=== PATIENT | male | born 2005 | race Caucasian/White ===

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

== ENCOUNTER → 2024-05-15 | Outpatient (REF) | payer BC ==
[~2024-05-15] MED LIST: ARIP1TAB4; CIPR-249 PO; ESCITALOPRAM; ESTR2TAB3; SPIR100T3
[2024-05-15 18:53] LABS: BASO % 0.5 % (0.0-1.0); EOS # 0.1 10^3/uL (0.0-0.5); EOS % 2.2 % (0.0-3.0); HEMATOCRIT 39.7 % (42.0-52.0); HEMOGLOBIN 13.1 g/dl (13.5-17.5); LYMPH # 1.3 10^3/uL (1.5-5.0); LYMPH % 19.6 % (24.0-44.0); MEAN CORPUSCULAR HEMOGLOBIN 30.8 pg (27.0-33.0); MEAN CORPUSCULAR VOLUME 93.4 fl (80.0-96.0); MONO # 0.6 10^3/uL (0.0-0.8); MONO % 8.7 % (2.0-8.0); NEUTROPHILS # 4.5 10^3/uL (1.5-8.5); NEUTROPHILS % 68.7 % (36.0-66.0); PLATELET COUNT, AUTOMATED 257 10^3/uL (150-450); RED BLOOD COUNT 4.25 10^6/uL (4.30-6.10); WHITE BLOOD COUNT 6.5 10^3/uL (4.0-10.0)
[2024-05-15 19:12] LABS: IRON (FE) 40 UG/DL (65-175)
[2024-05-15 19:13] LABS: ALBUMIN 3.9 G/DL (3.2-5.2); ALKALINE PHOSPHATASE 76 U/L (40-129); ALT/SGPT 22 U/L (7.0-40); AST/SGOT 12 U/L (<34); BILIRUBIN,TOTAL 0.7 MG/DL (0.3-1.2); BLOOD UREA NITROGEN 12 MG/DL (9-23); CALCIUM LEVEL 9.6 MG/DL (8.5-10.1); CARBON DIOXIDE LEVEL 28 MMOL/L (20-31); CHLORIDE LEVEL 108 MMOL/L (98-107); CREATININE FOR GFR 0.84 MG/DL (0.70-1.30); GLUCOSE, FASTING 92 MG/DL (60-100); PERCENT SATURATION 13.4 % (19.7-50.0); POTASSIUM SERUM 3.9 MMOL/L (3.5-5.1); SODIUM LEVEL 142 MMOL/L (136-145); TOTAL IRON BINDING CAPACITY 299 UG/DL (250-425); TOTAL PROTEIN 6.7 G/DL (5.7-8.2)
== END ==
LOC: M SFHCLERA 14:00
DX: Z83.2 Family history of diseases of the blood and blood-forming organs and certain disorders involving the immune mechanism (principal); F50.89 Other specified eating disorder; G47.33 Obstructive sleep apnea (adult) (pediatric); F41.8 Other specified anxiety disorders; R16.1 Splenomegaly, not elsewhere classified

== ENCOUNTER 2024-06-19 13:29 | Emergency (ER) | payer BC ==
[~2024-06-19] VITALS: Ht 182.9 cm; Wt 175.3 kg
[2024-06-19 14:25] LABS: BASO % 0.5 % (0.0-1.0); EOS % 0.5 % (0.0-3.0); HEMATOCRIT 35.6 % (42.0-52.0); HEMOGLOBIN 12.5 g/dl (13.5-17.5); LYMPH # 1.4 10^3/uL (1.5-5.0); LYMPH % 20.9 % (24.0-44.0); MEAN CORPUSCULAR HEMOGLOBIN 32.1 pg (27.0-33.0); MEAN CORPUSCULAR HGB CONC 35.1 g/dl (32.0-36.5); MEAN CORPUSCULAR VOLUME 91.3 fl (80.0-96.0); MONO # 0.5 10^3/uL (0.0-0.8); MONO % 7.9 % (2.0-8.0); NEUTROPHILS # 4.6 10^3/uL (1.5-8.5); NEUTROPHILS % 69.9 % (36.0-66.0); PLATELET COUNT, AUTOMATED 224 10^3/uL (150-450); WHITE BLOOD COUNT 6.6 10^3/uL (4.0-10.0)
[2024-06-19 14:52] LABS: BLOOD UREA NITROGEN 12 MG/DL (9-23); CALCIUM LEVEL 9.1 MG/DL (8.5-10.1); CARBON DIOXIDE LEVEL 28 MMOL/L (20-31); CHLORIDE LEVEL 105 MMOL/L (98-107); CREATININE FOR GFR 0.92 MG/DL (0.70-1.30); GLUCOSE, FASTING 86 MG/DL (60-100); POTASSIUM SERUM 3.6 MMOL/L (3.5-5.1); SODIUM LEVEL 141 MMOL/L (136-145)
[2024-06-19 16:18] LABS: KETONE, URINE AUTO RFX TRACE mg/dL (NEGATIVE); LEUKOCYTE ESTERASE UR AUTO RFX NEGATIVE (NEGATIVE); NITRITE, URINE AUTO RFX NEGATIVE (NEGATIVE); RBC, URINE AUTO RFX 0 /HPF (0-3); SQUAM EPITHELIAL CELL UR AURFX 0 /HPF (0-6); WBC, URINE AUTO RFX 0 /HPF (0-3)
[2024-06-19 16:51] VITALS: BP 121/64; TEMP 98; O2SAT 100
== END 2024-06-19 16:53 | disposition home or self-care (01) ==
LOC: M ED 13:29
DX: Z00.00 Encounter for general adult medical examination without abnormal findings (principal); F84.0 Autistic disorder; F90.9 Attention-deficit hyperactivity disorder, unspecified type; F64.0 Transsexualism; Z88.0 Allergy status to penicillin; Z79.2 Long term (current) use of antibiotics; Z79.899 Other long term (current) drug therapy

== ENCOUNTER 2024-07-19 04:57 | Emergency (ER) | payer BC ==
[~2024-07-19] VITALS: Ht 182.9 cm; Wt 174.6 kg
[~2024-07-19 04:57] MED LIST changes: -ARIP1TAB4; +ARIP1TAB4 PO; -ESTR2TAB3; +ESTR2TAB3 PO
[2024-07-19] MEDS ORDERED: FLUO-365 PO (05:39)
[2024-07-19] MEDS ORDERED: FINA5TAB2 PO (05:39)
[2024-07-19] MEDS ORDERED: BUPR75TA5 PO (05:39)
[2024-07-19] MEDS ORDERED: VENTAER INH (05:39)
[2024-07-19] MEDS ORDERED: PROG1CAP9 PO (05:39)
[2024-07-19] MEDS ORDERED: FERR325T19 PO (05:39)
[2024-07-19] MEDS ORDERED: HOME MED LIST COMPLETE! XX SCH (05:40)
[2024-07-19 05:57] LABS: HEMATOCRIT 38.4 % (42.0-52.0); HEMOGLOBIN 12.8 g/dl (13.5-17.5); MEAN CORPUSCULAR HEMOGLOBIN 30.2 pg (27.0-33.0); MEAN CORPUSCULAR HGB CONC 33.3 g/dl (32.0-36.5); MEAN CORPUSCULAR VOLUME 90.6 fl (80.0-96.0); PLATELET COUNT, AUTOMATED 229 10^3/uL (150-450); RED BLOOD COUNT 4.24 10^6/uL (4.30-6.10); WHITE BLOOD COUNT 7.5 10^3/uL (4.0-10.0)
[2024-07-19 06:17] LABS: AMPHETAMINES LEVEL URINE NEGATIVE (NEGATIVE); BARBITURATES URINE NEGATIVE (NEGATIVE); BENZODIAZEPINES URINE NEGATIVE (NEGATIVE); CANNABINOIDS URINE NEGATIVE (NEGATIVE); COCAINE METABOLITE URINE NEGATIVE (NEGATIVE); METHADONE URINE NEGATIVE (NEGATIVE); OPIATES URINE NEGATIVE (NEGATIVE); PHENCYCLIDINE URINE NEGATIVE (NEGATIVE)
[2024-07-19 06:19] LABS: ETHYL ALCOHOL (ETHANOL) 0.004 % (0.000-0.010)
[2024-07-19 06:21] LABS: ALBUMIN 3.6 G/DL (3.2-5.2); ALKALINE PHOSPHATASE 82 U/L (40-129); ALT/SGPT 14 U/L (7.0-40); AST/SGOT 12 U/L (<34); BILIRUBIN,DIRECT 0.2 MG/DL (<0.4); BILIRUBIN,TOTAL 0.8 MG/DL (0.3-1.2); BLOOD UREA NITROGEN 10 MG/DL (9-23); CALCIUM LEVEL 9.2 MG/DL (8.5-10.1); CARBON DIOXIDE LEVEL 27 MMOL/L (20-31); CHLORIDE LEVEL 103 MMOL/L (98-107); CREATININE FOR GFR 0.79 MG/DL (0.70-1.30); GLUCOSE, FASTING 104 MG/DL (60-100); POTASSIUM SERUM 3.4 MMOL/L (3.5-5.1); SALICYLATE LEVEL < 3.0 MG/DL (<30); SODIUM LEVEL 140 MMOL/L (136-145); TOTAL PROTEIN 6.7 G/DL (5.7-8.2)
[2024-07-19 06:23] LABS: THYROID STIMULATING HORMONE 3.145 uIU/ML (0.48-4.17)
[2024-07-19 11:05] VITALS: BP 128/66; TEMP 97.6; O2SAT 97
== END 2024-07-19 11:12 | disposition home or self-care (01) ==
LOC: M ED 04:57
DX: F84.0 Autistic disorder (principal); G47.30 Sleep apnea, unspecified; F41.9 Anxiety disorder, unspecified; F32.A Depression, unspecified; Z88.0 Allergy status to penicillin; Z79.52 Long term (current) use of systemic steroids; Z79.899 Other long term (current) drug therapy

== ENCOUNTER → 2024-11-13 | Outpatient (REF) | payer BC ==
[~2024-11-13] MED LIST changes: +BUPR75TA5 PO; +FERR325T19 PO; +FINA5TAB2 PO; +FLUO-365 PO; +PROG1CAP9 PO; +VENTAER INH
== END ==
LOC: M SFHCLERA 13:30
DX: Z53.9 Procedure and treatment not carried out, unspecified reason (principal)

== ENCOUNTER → 2024-11-15 | Outpatient (REF) | payer BC ==
[2024-11-15 19:05] LABS: BASO # 0.0 10^3/uL (0.0-0.2); BASO % 0.4 % (0.0-1.0); EOS # 0.1 10^3/uL (0.0-0.5); EOS % 0.8 % (0.0-3.0); LYMPH # 1.9 10^3/uL (1.5-5.0); LYMPH % 25.4 % (24.0-44.0); MONO # 0.5 10^3/uL (0.0-0.8); MONO % 6.7 % (2.0-8.0); NEUTROPHILS # 4.9 10^3/uL (1.5-8.5); NEUTROPHILS % 66.4 % (36.0-66.0); PLATELET COUNT, AUTOMATED 238 10^3/uL (150-450)
[2024-11-15 19:17] LABS: IRON (FE) 36.0 UG/DL (65-175); PERCENT SATURATION 12.3 % (19.7-50.0)
== END ==
LOC: M LABWUC 17:28
DX: E61.1 Iron deficiency (principal)